=== PATIENT | female | born 1965 | race Caucasian/White ===

== ENCOUNTER 2020-05-18 15:15 | Outpatient (CLI) | payer OTHER, SELFPAY ==
--- NOTE | ~2020-05-18 | XR_ITS ---
XR_CERV2-3V_CR DATE: 05/18/2020 15:37 INDICATION: Left arm radicular pain TECHNIQUE: AP, open-mouth, lateral views COMPARISON: None FINDINGS: C1 and C2 are normally aligned and the odontoid process is intact. No fracture or dislocati on or locked facet or prevertebral soft tissue swelling. Cervical interspaces are well preserved. IMPRESSION: No significant abnormality Reviewed, dictated and finalized at Location A. Reviewed, dictated and finalized at location B. IMPRESSION: No significant abnormality
== END 2020-05-18 15:16 | disposition home or self-care (01) ==
PROVIDERS: PCP Family Medicine; Visit Provider Family Medicine
DX: M79.2 Neuralgia and neuritis, unspecified (principal)
CPT/HCPCS: 72040

== ENCOUNTER 2020-11-05 10:36 | Outpatient (CLI) | payer OTHER, SELFPAY ==
--- NOTE | ~2020-11-05 | MM_ITS ---
EXAMINATION: MM screening sarah BI w christophe HISTORY: Screening TECHNIQUE: Craniocaudal and mediolateral oblique 3-D tomosynthesis images were obtained and synthetic 2-D images were generated. CAD analysis was submitted and interpreted. COMPARISON: No prior mammogram is available for comparison at this institution. BREAST PARENCHYMAL COMPOSITION: There are scattered areas of fibroglandular density. FINDINGS: There is a small circumscribed radiolucent mass in the lower inner quadrant of the left camryn ast posteriorly measuring 4 mm. There is no mammographic evidence for malignancy in the right breast. IMPRESSION: 1. 4 mm left breast mass, lower inner quadrant. 2. Comparison to prior outside mammogram recommended. BI-RADS Category 0: Incomplete: Needs additional imaging evaluation. Reviewed, dictated and finalized at location A.
== END 2020-11-05 10:37 | disposition home or self-care (01) ==
LOC: CHSIMG 10:38
PROVIDERS: PCP Nurse Practitioner Family; Visit Provider Nurse Practitioner Family
DX: Z12.31 Encounter for screening mammogram for malignant neoplasm of breast (principal)
CPT/HCPCS: 77063; 77067

== ENCOUNTER 2020-11-26 08:49 | Outpatient (CLI) | payer OTHER, SELFPAY ==
--- NOTE | ~2020-11-26 | MMUS_ITS ---
EXAMINATION: MM diagnostic sarah LT w christophe, US breast LT limited HISTORY: 4 mm left breast mass, lower inner quadrant reported on 11/05/2020 bilateral digital screenin g mammogram examination TECHNIQUE: Additional 3-D tomosynthesis images of the right breast were performed and synthetic 2-D i mages were generated. CAD analysis was submitted and interpreted. High resolution lower inner quadran t right breast ultrasound was performed. COMPARISON: 11/05/2020 bilateral digital screening mammogram FINDINGS: MAMMOGRAPHIC FINDINGS: An approximately 3.7 mm relatively superficial circumscribed low-density opacity is confirmed posteri chinedu in the lower inner quadrant of the left breast. ULTRASOUND: At 8:00 position 9 cm from the nipple there is a parallel circumscribed hypoechoic lesion measuring 2 .8 x 4.2 x 3.2 mm, with some through transmission and posterior enhancement. No internal vascularity or posterior shadowing. This is likely benign, possibly a complicated sebaceous cyst. Follow-up 6 mon th diagnostic mammogram and targeted left breast ultrasound examination are recommended. IMPRESSION: 1. Probably benign complicated cyst at 8:00 9 cm from nipple 2. 6 month follow-up diagnostic left mammogram and targeted left breast ultrasound examination are re commended. BI-RADS Category 0: Incomplete: Needs additional imaging evaluation. Reviewed, dictated and finalized at location A. IMPRESSION: 1. Probably benign complicated cyst at 8:00 9 cm from nipple 2. 6 month follow-up diagnostic left mammogram and targeted left breast ultraso und examination are recommended. BI-RADS Category 0: Incomplete: Needs additional imaging evaluation.
== END 2020-11-26 08:50 | disposition home or self-care (01) ==
PROVIDERS: PCP Nurse Practitioner Family; Visit Provider Nurse Practitioner Family
DX: R92.8 Other abnormal and inconclusive findings on diagnostic imaging of breast (principal)
CPT/HCPCS: 76642; 77061; 77065; G0279

== ENCOUNTER 2020-12-09 12:39 | Outpatient (CLI) | payer OTHER, SELFPAY ==
--- NOTE | ~2020-12-09 | US_ITS ---
EXAMINATION: Consultation US HISTORY: Patient presents for biopsy of the left breast mass TECHNIQUE: Limited left breast ultrasound was performed in the area of clinical concern in the lower inner left breast FINDINGS: Real-time scanning demonstrates a 4 mm mass in the skin of the left breast at the 8:00 loca tion 9 cm from the nipple with a thin tract to the skin surface. At real-time scanning, a correlate f or the tract was visually identified on the skin surface. Findings are most consistent with a sebaceo us cyst. This was discussed with the patient who reports an episode of expressing material from a bu mp in her breast at this location previously. A plan for targeted left breast ultrasound in six beth hs was agreed upon with the patient. IMPRESSION: Targeted left breast ultrasound in six months is recommended. Reviewed, dictated and finalized at location A.
== END 2020-12-09 12:40 | disposition home or self-care (01) ==
LOC: CHSIMG 12:40
PROVIDERS: PCP Nurse Practitioner Family; Visit Provider Nurse Practitioner Family
DX: R92.8 Other abnormal and inconclusive findings on diagnostic imaging of breast (principal)
CPT/HCPCS: 99199

== ENCOUNTER 2021-06-11 09:22 | Outpatient (CLI) | payer OTHER, SELFPAY ==
--- NOTE | ~2021-06-11 | MMUS_ITS ---
EXAMINATION: MM diagnostic sarah LT w christophe, US breast LT limited HISTORY: Six-month follow-up of probably benign complicated cyst at 8:00 9 cm from nipple TECHNIQUE: ML, MLO and craniocaudal 3-D tomosynthesis images of the right breast were performed and s ynthetic 2-D images were generated. CAD analysis was submitted and interpreted. High resolution limit ed right breast 8:00 ultrasound was performed. COMPARISON: 11/26/2020 diagnostic left mammogram and limited left breast ultrasound BREAST PARENCHYMAL COMPOSITION: The breasts are almost entirely fatty. FINDINGS: MAMMOGRAPHIC FINDINGS: Stable 4 mm circumscribed opacity in the lower inner left breast posteriorly. The mammographic featur es are suggestive of benign process. ULTRASOUND: 3.4 x 4.9 x 3.9 mm parallel circumscribed subcutaneous lesion with through transmission and posterior enhancement is noted in the subcutaneous area with low intensity internal echoes, likely a complicat ed cyst, most likely a sebaceous cyst. No suspicious shadowing or internal vascularity is noted. IMPRESSION: 1. Benign finding 2. Routine mammographic screening is recommended BI-RADS Category 2: Benign finding(s). Reviewed, dictated and finalized at location A. IMPRESSION: 1. Benign finding 2. Routine mammographic screening is recommended BI-RADS Category 2: Benign finding(s).
== END 2021-06-11 09:23 | disposition home or self-care (01) ==
LOC: CHSIMG 09:23
PROVIDERS: PCP Nurse Practitioner Family; Visit Provider Nurse Practitioner Family
DX: N63.20 Unspecified lump in the left breast, unspecified quadrant (principal); R92.8 Other abnormal and inconclusive findings on diagnostic imaging of breast
CPT/HCPCS: 76642; 77061; 77065; G0279

== ENCOUNTER 2022-06-13 08:06 | Outpatient (CLI) | payer OTHER, SELFPAY ==
--- NOTE | ~2022-06-13 | MM_ITS ---
EXAMINATION: MM screening [facility] BI w christophe HISTORY: Screening mammogram TECHNIQUE: Craniocaudal and mediolateral oblique 3-D tomosynthesis images were obtained and synthetic 2-D images were generated. CAD analysis was submitted and interpreted. COMPARISON: 06/11/2021, 11/26/2020, 11/05/2020 BREAST PARENCHYMAL COMPOSITION: There are scattered areas of fibroglandular density. FINDINGS: There is a stable mass in the skin of the lower inner left breast. No suspicious mass, calc ification, or architectural distortion are identified in either breast to suggest malignancy. There h as been no suspicious interval change. IMPRESSION: 1. No mammographic evidence of malignancy. 2. Recommend routine screening mammography in one year. BI-RADS Category 2: Benign finding(s). Reviewed, dictated and finalized at location A.
== END 2022-06-13 08:07 | disposition home or self-care (01) ==
LOC: CHSIMG 08:07
PROVIDERS: PCP Nurse Practitioner Family; Visit Provider Nurse Practitioner Family
DX: Z12.31 Encounter for screening mammogram for malignant neoplasm of breast (principal)
CPT/HCPCS: 77063; 77067

== ENCOUNTER 2023-07-05 08:04 | Outpatient (CLI) | payer OTHER, SELFPAY ==
--- NOTE | ~2023-07-05 | MM_ITS ---
EXAMINATION: MM screening [facility] BI w christophe HISTORY: Screening mammogram TECHNIQUE: Craniocaudal and mediolateral oblique 3-D tomosynthesis images were obtained and synthetic 2-D images were generated. CAD analysis was submitted and interpreted. COMPARISON: 06/13/2022, 06/11/2021, 11/26/2020, 11/05/2020 BREAST PARENCHYMAL COMPOSITION: There are scattered areas of fibroglandular density. FINDINGS: A sebaceous cyst of the lower outer left breast is again noted. No suspicious mass, calcifi cation, or architectural distortion are identified in either breast to suggest malignancy. There has been no suspicious interval change. IMPRESSION: 1. No mammographic evidence of malignancy. 2. Recommend routine screening mammography in one year. BI-RADS Category 2: Benign finding(s). Reviewed, dictated and finalized at location A. [place] ASSISTANT MANAGER
== END 2023-07-05 08:05 | disposition home or self-care (01) ==
LOC: CHSIMG 08:06
PROVIDERS: PCP Nurse Practitioner Family; Visit Provider Nurse Practitioner Family
DX: Z12.31 Encounter for screening mammogram for malignant neoplasm of breast (principal)
CPT/HCPCS: 77063; 77067

== ENCOUNTER 2024-08-29 13:30 | Outpatient (CLI) | payer OTHER, SELFPAY ==
--- NOTE | ~2024-08-29 | MM_ITS ---
EXAMINATION: MM screening sarah BI w christophe HISTORY: Screening TECHNIQUE: Craniocaudal and mediolateral oblique 3-D tomosynthesis images were obtained and synthetic 2-D images were generated. CAD analysis was submitted and interpreted. COMPARISON: Comparison to multiple prior studies sequentially, with oldest reviewed study dated 11/05. BREAST PARENCHYMAL COMPOSITION: Not dense: There are scattered areas of fibroglandular density. FINDINGS: The right breast is stable without evidence for malignancy. There is bilateral nipple inver mynor which appears chronic. There is an enlarging mass in the lower inner quadrant of the left breast posteriorly. IMPRESSION: 1. Enlarging mass lower inner quadrant of the left breast posteriorly. 2. Additional mammographic views and possible breast ultrasound are recommended. BI-RADS Category 0: Incomplete: Needs additional imaging evaluation. Reviewed, dictated and finalized at location B. CROCHETER IMPRESSION: 1. Enlarging mass lower inner quadrant of the left breast posteriorly. 2. Additional mammographic views and possible breast ultrasound are recommended . BI-RADS Category 0: Incomplete: Needs additional imaging evaluation.
== END 2024-08-29 13:31 | disposition home or self-care (01) ==
LOC: CHSIMG 13:32
PROVIDERS: PCP Physician Assistant; Visit Provider Physician Assistant
DX: Z12.31 Encounter for screening mammogram for malignant neoplasm of breast (principal); R92.8 Other abnormal and inconclusive findings on diagnostic imaging of breast
CPT/HCPCS: 77063; 77067

== ENCOUNTER 2024-09-12 09:36 | Outpatient (CLI) | payer OTHER, SELFPAY ==
--- NOTE | ~2024-09-12 | MMUS_ITS ---
EXAMINATION: MM diagnostic sarah LT w christophe, US breast LT limited HISTORY: Follow-up left breast mass TECHNIQUE: Additional 3-D tomosynthesis images of the left breast were performed and synthetic 2-D im ages were generated. CAD analysis was submitted and interpreted. High resolution Limited left breast ultrasound was performed. COMPARISON: Comparison to multiple prior studies sequentially, with oldest reviewed study dated 11/05. BREAST PARENCHYMAL COMPOSITION: Not dense: There are scattered areas of fibroglandular density. FINDINGS: MAMMOGRAPHIC FINDINGS: There is a superficial mass in the lower inner quadrants of the left breast measuring approximately 1 1 mm. There are no suspicious calcifications or architectural distortion. ULTRASOUND: Limited left breast ultrasound: At 7:00, 10 cm from the nipple there is an oval heterogeneous hypoech oic predominantly hypoechoic parallel oriented mass measuring 1.3 x 0.8 x 1 cm. No significant internal wholesaler al vascularity. There is mixed posterior attenuation. No other masses are seen. IMPRESSION: 1. Left breast mass at 7:00, 10 cm from the nipple measuring 1.3 cm. 2. Ultrasound-guided left breast biopsy recommended. BI-RADS category 4, suspicious findings. Reviewed, dictated and finalized at location A. STMENT ACCOUNTING CLERK IMPRESSION: 1. Left breast mass at 7:00, 10 cm from the nipple measuring 1.3 cm. 2. Ultrasound-guided left breast biopsy recommended. BI-RADS category 4, suspicious findings.
== END 2024-09-12 09:37 | disposition home or self-care (01) ==
PROVIDERS: PCP Physician Assistant; Visit Provider Physician Assistant
DX: N63.24 Unspecified lump in the left breast, lower inner quadrant (principal); R92.8 Other abnormal and inconclusive findings on diagnostic imaging of breast
CPT/HCPCS: 76642; 77061; 77065; G0279

== ENCOUNTER 2024-10-07 08:40 | Outpatient (CLI) | payer OTHER, SELFPAY ==
--- NOTE | ~2024-10-07 | MMUS_ITS ---
MM post biopsy diagnostic LT, US breast biopsy LT w image EXAMINATION: US GUIDED NEEDLE BIOPSY WITH VACUUM ASSISTANCE DATE: 10/07/2024 11:27 STRAW BALER INDICATION: Left breast mass seen in the lower inner quadrant of the breasts. Ultrasound-guided core biopsy is requested to evaluate for malignancy. BREAST PARENCHYMAL COMPOSITION: Not dense: There are scattered areas of fibroglandular density. TECHNIQUE AND FINDINGS: The risks and potential benefits of the procedure were discussed with the patient, and written inform ed consent was obtained. After sterile preparation of the left breast, 1% lidocaine was utilized for local anesthesia. 1% lidocaine with epinephrine was used for deep anesthesia. A 10G vacuum-assisted biopsy gun needle was advanced through to the outer edge of the region of inter est from a inferior approach utilizing sonographic guidance. A total of 4 tissue core samples were o btained through the lesion. An Inrad tissue marker clip was then placed at the biopsy site. Hemostas is was achieved. The patient tolerated procedure well and there was no evidence of immediate complication. The patien t was given verbal instructions partly is from the department. Left breast mammograms to document ti ssue marker clip placement. The tissue samples were submitted to surgical pathology for histologic an alysis. IMPRESSION: 1. Successful ultrasound-guided vacuum-assisted biopsy of left breast mass with post procedure mammo gram for marker placement. Please refer to pathology report for histologic analysis. Reviewed, dictated and finalized at location B. W BALER IMPRESSION: 1. Successful ultrasound-guided vacuum-assisted biopsy of left breast mass wit h post procedure mammogram for marker placement. Please refer to pathology repo rt for histologic analysis.
--- OUTSIDE RECORDS SUMMARY | 2024-10-07 11:29 | XMS_ITS | Data Portability ---
Author Organization [facility], [address] [place] [address] Neurology ([place]) Address [address] [place] [address] Care Team Providers Care B2B Sales Representative Name Role Phone GLADYS JOHNSON Allied Health Professional Assessment Encounter Date Assessment Date Assessment LastModified by Organization Details LastModified Time 09/27/2024 09/27/2024 Ms Sun is a pleasant 58-year-old G9, P9 who presents today at the [facility] specialty clinic for an annual exam. Health maintenance: Ada reports her last Pap smear was approximately 3 years ago. She does have a remote history of abnormal. A Pap smear was collected today. Will notify her of results. We discussed importance of breast self-awareness. She has a breast biopsy scheduled on October 07. Her most recent mammogram was in [facility]. A release of information was signed to attempt to obtain these records. She was given order for hepatitis C screening. She completed her hereditary cancer risk assessment today that was negative. She reports her most recent colonoscopy was at age 50 and was recommend to have a 5-year follow-up. Will encourage her to schedule this. All of her questions were answered today. She agrees to plan of care. Plan to follow-up in 1 year for annual exam or sooner problem arises. [email or web address] Not available 09/27/2024 11:31:22 Plan of Treatment Reminders Order Date Submit Date Provider Last Modified By Organization Details Last Modified Time Details Appointments Annual Well Woman Visit 30.EST 2025 09:00A M Dr. Gladys Johnson Not available Not available Not available Lab Pap test, slide(s), cervical 2024 025 [facility], [address] [place], [address], 09/27/2024 11:32:10 hepatitis C Ab, serum 2024 025 [facility], [address] [place], [address], 09/28/2024 11:43:54 Referral None recorded. Procedures None recorded. Surgeries None recorded. Imaging None recorded. Medication Orders None recorded. Patient TargetsNo targets recorded. Patient InstructionsNo instructions recorded. Reason for Referral None Reported. Results Created Date Observation Date Name Description Value Unit Range Abnormal Flag Note LastModifiedBy Organization Detail LastModifiedTime 10/04/1906/10/2022 US, trans vagin al No observ ation record ed. BARCODE Not Available 2024 15:07:09 Result Notes None recorded. Procedures Surgical History None recorded. Imaging Results Imaging Date Name Status LastModified by Organization Details LastModified Time 06/10/2022 US, transvaginal completed BARCODE Informat ion not available 10/04/2024 15:07:09 Procedure Notes None recorded. Medical Equipment None Reported. Allergies Allergen ID Allergen Name Allergen Category Reaction Reaction Severity Criticality Documentation Date Start Date Code Code System Note Provider Name and Address Organization Details Recorded Time [id number] Product containin g penicilli n (product) medicatio n Not available Not available Not available 09/27/2024 [id number] SNOMED Not Available Not Available Not Available Medications Name Sig Start Date Stop Date Status Note LastModified by Organization Details LastModified Time Premarin 0.625 mg/gram vaginal cream APPLY 1 GRAM VAGINALLY 2 TIMES A WEEK active Not Available Not Available No t Available Vitals Date Recorded Body height Body mass index (BMI) Body weight Systolic blood pressure Diastolic blood pressure Provider Name and Address Organization Details Last Updated DateTime 09/27/2024 151.13 cm 24.8 kg/m2 16413.05 g 124 mm[Hg] 76 mm[Hg] Olivia Collier [facility] 10:38:35 Social History Question Answer Notes LastModified by Organizat ion Details LastModified Time Tobacco Smoking Status Never Smoker Olivia Collier [facility] 09/27/2024 10:42:17 What Is Your Level Of Alcohol Consumption? None [email or web address] Information not available 09/27/2024 What Is Your Level Of Caffeine Consumption? Occasional [email or web address] Information not available 09/27/2024 Sex: Unknown Functional Status None recorded. Mental Status None recorded. Family History Relationship Description Onset Age of this Age Resolved Age Notes LastModified by Organization Details LastModified Time Mother Diabetes mellitus Not available 2024 10:41:06 Father Heart disease [email or web address] Not available 2024 10:41:20 Medical History No medical history recorded. Gynecological History Statement/Question Response If Post Menopausal, Age at Menopause 43 Abnormal Pap N Age at Menarche 12 Current Control Method None Date of Last Mammogram Colonoscopy Obstetrics History GPAL:G 9 P 0 0 0 0 Past Encounters Encounter ID Performer Location Encounter Start Date Encounter Closed Date Diagnosis/Indication Diagnosis SNOMED-CT Code Diagnosis ICD10 Code Diagnosis Note [id number] Gladys Johnson MD [facility] [place] ([place]) [address] [place] [address] 09/27/2024 10:05:46 10/01/2024 08:59:06 Viral screening status 507795327 Z11.59 Gynecologi c examination 96298861 Z01.419 Health Concerns Section Related Observation LastModified by Organization Detai ls LastModified Time None Recorded Concern Status LastModified by Organization Details LastModified Time None Recorded Advance Directives Directive None Recorded Payers Encounter Date Sequence Insurance Name Policy Number Policy Hale Covered Member ID Hale Member ID Guarantor Name 09/27/2024 1 [facility] (MEDICAID REPLACEMENT - HMO) [facility] [id number] [facility] Notes Date Note Type Note Provider Name and Address Organization Details Recorded Time 09/27/2024 text/html Ms Sun is a pleasant 58-year-old G9, P9 who presents today for an annual exam at the [facility] specialty clinic. She previously saw Dr. Reid in this clinic. She is postmenopausal. She denies any vaginal bleeding. She did have an episode of postmenopausal bleeding in 2021 for which she underwent a pelvic ultrasound and a biopsy. Her biopsy did not have any endometrial tissue present. She was started on vaginal estrogen and has not had any additional bleeding since then. She ran out of vaginal estrogen in February and has not used any since. She has not had any additional vaginal bleeding. She denies any vaginal dryness, discharge, itching or burning. She denies any vasomotor symptoms. She denies a probs of voiding or bowel movements. She is not sexually active. She does have a remote history of abnormal Pap smears but states it was many years ago and they repeated her Pap smear once and never had to have another abnormal mole or follow-up. She believes her last Pap smear was about 3 years ago. She had a mammogram in [place] on September 14. She has a left breast biopsy scheduled for October 07. She is not previously had hepatitis C screening. She completed a hereditary cancer risk assessment today that was negative. She had a colonoscopy at age 50 and was recommended to have a 5-year follow-up. Social History:8 is a non-smoker. She denies alcohol or recreational drug use. She is not sexually active. She consumes caffeine daily. She does not exercise. Gladys Johnson MD [address] [place] [address], [phone], [facility] 09/27/2024 11:31:26 OBGyn Episode No OBEpisode recorded.
== END 2024-10-07 08:41 | disposition home or self-care (01) ==
LOC: ANHIMG 08:43
PROVIDERS: PCP Physician Assistant; Visit Provider Physician Assistant
DX: N63.24 Unspecified lump in the left breast, lower inner quadrant (principal)
CPT/HCPCS: 19083; 77065; 88305; A4648